=== PATIENT | female | born 1970 | race Caucasian/White ===

== ENCOUNTER 2023-03-24 09:40 | Emergency (ER) | payer BC ==
[~2023-03-24] VITALS: Ht 172.7 cm; Wt 72.6 kg
== END 2023-03-24 10:39 | disposition home or self-care (01) ==
LOC: ER 09:40
DX: S60.445A External constriction of left ring finger, initial encounter (principal); W49.04XA Ring or other jewelry causing external constriction, initial encounter; Y93.89 Activity, other specified; Y92.89 Other specified places as the place of occurrence of the external cause; Y99.8 Other external cause status; R53.81 Other malaise; Z88.2 Allergy status to sulfonamides; Z88.0 Allergy status to penicillin